=== PATIENT | female | born 1995 | race Caucasian/White ===

== ENCOUNTER 2017-03-01 22:27 | Emergency (ER) | payer MEDICAID, OTHER ==
--- NOTE | 2017-03-01 23:00 | EDPHY ---
H & P HPI/ROS: CC: Arm redness and swelling after a bee sting HPI: This 21-year-old female with no significant past medical history presents to the emergency department today with her significant other for complaints of a swollen and red left forearm after being stung by a bee yesterday. She has had bee stings in the past and has had local reactions but this reaction is worse and covers her whole forearm. She has tried Benadryl orally at 2:00 p.m. this afternoon as well as Benadryl lotion and she also rubbed liquid ibuprofen on the area without significant relief. She denies lightheadedness, sore throat , throat swelling or difficulty swallowing. She has not had difficulty breathing, chest pain or abdominal pain. REVIEW OF SYSTEMS: Constitutional: No fever, no chills. Eyes: No discharge. ENT: No sore throat. Respiratory: No cough, no shortness of breath. Cardiac: No chest pain, no palpitations. Gastrointestinal: No abdominal pain, no vomiting. Genitourinary: No hematuria. Musculoskeletal: No back pain. Skin: See HPI. Neurological: No headache. Past Medical/Surgical History: PMH: Denied PSH: Denied FH: Denied NKDA Meds: None Tdap: UTD FDLMP 2 days ago PCP: [facility] Smoking Status: Never smoked Physical Exam: General Appearance: Alert, no distress. Eyes: Pupils equal and round no pallor or injection. ENT, Mouth: Mucous membranes are moist. No swelling; Uvulal midline. Respiratory: There are no retractions, lungs are clear to auscultation. Cardiovascular: Regular rate and rhythm. Gastrointestinal: Abdomen is soft and nontender.. Neurological: Awake and alert, sensory and motor exams grossly normal. Skin: Warm and dry. There is a 17 x 9.5 cm area of erythema to the volar aspect of the left forearm. Mild warmth. Minimal tenderness. No sign of compartment syndrome. Radial pulse intact. Musculoskeletal: Neck is supple nontender. Extremities are symmetrical, full range of motion. Psychiatric: Patient is oriented X 3, there is no agitation. DIFFERENTIAL DIAGNOSIS: After history and physical exam differential diagnosis was considered for but not limited to: local allergic reaction to bee sting; unlikely cellulitis; no compartment syndrome. Constitutional: Initial Vital Signs Temperature (C) 97.3 F 03/01/17 22:36 Heart Rate 58 L 03/01/17 22:36 Respiratory Rate 16 03/01/17 22:36 Blood Pressure 127/70 H 03/01/17 22:36 O2 Sat (%) 97 03/01/17 22:36 O2 Delivery Mode Room Air Allergies/Adverse Reactions: No Known Allergies Allergy (Verified 03/01/17 22:36) Home Medications: Medication Instructions Recorded predniSONE 50 mg PO DAILY #10 tablet 03/01/17 Medical Decision Making ED Course/Re-evaluation: The patient was seen and examined. Vital signs were reviewed. There was no sign of a systemic reaction to the bee sting only a localized reaction. She was given oral Benadryl, oral Pepcid, and oral prednisone. She was advised to take another 3-10 days of prednisone as prescribed. She should continue over- the-counter Benadryl and Pepcid. She may consider ibuprofen as well. She should keep the arm iced and elevated. Follow-up with primary care provider is needed or return to the emergency room sooner if symptoms worsen as discussed. - Data Points Medications Given: Discontinued Medications Diphenhydramine HCl (Benadryl) 25 mg PO EDNOW ONE Stop: 03/01/17 23:13 Last Admin: 03/01/17 23:25 Dose: 25 mg Famotidine (Pepcid) 20 mg PO EDNOW ONE Stop: 03/01/17 23:13 Last Admin: 03/01/17 23:25 Dose: 20 mg Prednisone (Prednisone) 60 mg PO ONCE ONE Stop: 03/01/17 23:13 Last Admin: 03/01/17 23:25 Dose: 60 mg Departure - Departure Disposition: Home, Routine, Self-Care Clinical Impression: Insect sting allergy, current reaction Qualifiers: Encounter type: initial encounter Condition: Good Instructions: Insect Bite or Sting (ED) Additional Instructions: Continue Benadryl 25 mg one tablet every 6 hours as needed and Pepcid 20 mg once or twice a day. Take the Prednisone for 3 - 10 days as directed. Ibuprofen may be taken as needed. Ice and elevate your arm. Return if symptoms worsen as discussed. Referrals: NONE *PRIMARY CARE P,. [Primary Care Provider] - As per Instructions Prescriptions: predniSONE 50 mg PO DAILY #10 tablet
[2017-03-01] MEDS ORDERED: diphenhydrAMINE 25 MG CAP PO ONE (23:12)
[2017-03-01] MEDS ORDERED: FAMOTIDINE 20 MG TAB PO ONE (23:12)
[2017-03-01] MEDS ORDERED: predniSONE 20 MG TAB PO ONE (23:12)
[2017-03-02] VITALS: BP 116/45; PULSE 57; RESP 16; O2SAT 98
[2017-03-02 00:01] VITALS: TEMP 97.3
== END 2017-03-01 23:43 | disposition home or self-care (01) ==
LOC: CED 22:27
DX: T63.481A Toxic effect of venom of other arthropod, accidental (unintentional), initial encounter (principal)